=== PATIENT | female | born 1990 | race African-American/Black ===

== ENCOUNTER 2021-11-14 14:58 | Emergency (ER) | payer SELFPAY ==
[2021-11-14] MEDS ORDERED: Albuterol 8 GM Inhaler INH ONE (16:45)
== END 2021-11-14 16:50 | disposition home or self-care (01) ==
LOC: MW.ED 14:58
DX: J40 Bronchitis, not specified as acute or chronic (principal)
CPT/HCPCS: 71046; 99283; A9270

== ENCOUNTER 2022-07-05 19:14 | Emergency (ER) | payer MEDICAID ==
[2022-07-05] MEDS ORDERED: Erythromycin Base 0.5% Ophth Oint 1 GM Tube EYEBOTH ONE (20:43)
== END 2022-07-05 21:21 | disposition home or self-care (01) ==
LOC: MW.ED 19:14
DX: H10.023 Other mucopurulent conjunctivitis, bilateral (principal); Z91.048 Other nonmedicinal substance allergy status; Z91.011 Allergy to milk products; Z91.013 Allergy to seafood; Z71.1 Person with feared health complaint in whom no diagnosis is made
CPT/HCPCS: 99283; A9270

== ENCOUNTER 2022-08-03 20:45 | Emergency (ER) | payer MEDICAID ==
[2022-08-03] MEDS ORDERED: Fluorescein 1 MG Ophth Strip EYERT ONE (21:00)
[2022-08-03] MEDS ORDERED: Tetracaine HCl/PF 0.5% 4 ML Bottle EYERT ONE (21:00)
[2022-08-03] MEDS ORDERED: Erythromycin Base 0.5% Ophth Oint 1 GM Tube EYERT ONE (21:02)
== END 2022-08-03 22:38 | disposition home or self-care (01) ==
LOC: MW.ED 20:45
DX: Z91.09 Other allergy status, other than to drugs and biological substances (principal); Z91.013 Allergy to seafood; Z91.011 Allergy to milk products; S05.01XA Injury of conjunctiva and corneal abrasion without foreign body, right eye, initial encounter; W22.8XXA Striking against or struck by other objects, initial encounter
CPT/HCPCS: 99283; A9270; J3490